=== PATIENT | female | born 1995 | race Two or more races ===

== ENCOUNTER 2016-12-07 21:23 | Emergency (ER) | payer MEDICAID ==
[~2016-12-07] VITALS: Ht 160 cm; Wt 72.6 kg
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
[2016-12-07] MEDS ORDERED: HYDROCODONE/APAP 5-325MG TABLET PO ONE (23:30)
--- NOTE | 2016-12-07 23:51 | NUR ---
Pt seen by Dr. Mendez. Pt medicated for discomfort, will monitor for effects of medication.
[2016-12-08] MEDS ORDERED: HYDROCODONE/APAP 5-325MG TABLET ONE (00:03)
[2016-12-08 00:37] LABS: *URINE HCG, QUAL NEGATIVE (NEGATIVE)
[2016-12-08] MEDS ORDERED: SILVER SULFADIAZINE 1% CREAM 50 GM TP ONE (02:00)
[2016-12-08] MEDS ORDERED: SILVER SULFADIAZINE 1% CREAM 25 GM TUBE TP ONE (02:10)
--- NOTE | 2016-12-08 02:10 | NUR ---
Pt stable for discharge per Dr. Mendez. Pt and family given ACI. Both verbalized understanding of dc instructions. Pt ambulated out of er with steady gait and ride home.
[2016-12-08 02:39] VITALS: BP 118/75
== END 2016-12-08 02:10 | disposition home or self-care (01) ==
LOC: ER 21:25
DX: S16.1XXA Strain of muscle, fascia and tendon at neck level, initial encounter (principal); S40.021A Contusion of right upper arm, initial encounter; S60.221A Contusion of right hand, initial encounter; T23.201A Burn of second degree of right hand, unspecified site, initial encounter; V89.2XXA Person injured in unspecified motor-vehicle accident, traffic, initial encounter; W22.11XA Striking against or struck by driver side automobile airbag, initial encounter; Y93.89 Activity, other specified; Y92.89 Other specified places as the place of occurrence of the external cause; Y99.8 Other external cause status
CPT/HCPCS: 16020; 72125; 73020; 73090; 73130; 84703; A4663